=== PATIENT | female | born 1990 | race American Indian/Alaskan Native ===

== ENCOUNTER 2016-09-19 06:36 | Day surgery (SDC) | payer MEDICAID ==
[2016-09-19] MEDS ORDERED: WATER FOR IRRIG STERILE IR ONE (07:46)
[2016-09-19] MEDS ORDERED: DIPRIVAN 10 MG/ML IV ONE ×2 (07:51)
--- NOTE | 2016-09-19 07:54 | Anesthesia Consultation ---
Anesthesia Consult and Med Hx Date of service: 09/19/16 - Airway Anesthetic Teeth Evaluation: Good ROM Head & Neck: Adequate Mental/Hyoid Distance: Inadequate Mallampati Class: Class III Intubation Access Assessment: Possibly Difficult - Pulmonary Exam CTA: Yes - Cardiac Exam Cardiac Exam: RRR - Pre-Operative Health Status ASA Pre-Surgery Classification: ASA3 Proposed Anesthetic Plan: MAC - Pulmonary Hx Smoking: No SOB: Yes (resolved) Hx Sleep Apnea: Yes (does not use CPAP) - Cardiovascular System Hx Hypertension: No - Central Nervous System Hx Neuromuscular Disorder: No Hx Psychiatric Problems: Yes (bipolar, depression) - Gastrointestinal Hx Gastroesophageal Reflux Disease: Yes - Endocrine Hx Insulin Dependent Diabetes: No - Hematic Hx Anemia: No Hx Sickle Cell Disease: No - Other Systems Hx Alcohol Use: No Hx Substance Use: No Hx Cancer: No Hx Obesity: Yes - Additional Comments Anesthesia Medical History Comments: [employer] - WILL NOT ACCEPT BLOOD PRODUCTS
--- NOTE | 2016-09-19 07:54 | Anesthesia Day of Surgery ---
Anesthesia Day of Surgery - Day of Surgery Patient Examined: Yes Patient H&P Reviewed: Yes Patient is NPO: Yes
[2016-09-19] MEDS ORDERED: NACL 0.9% 1000 ML 1,000 ML IV SCH (08:00)
[2016-09-19] MEDS ORDERED: XYLOCAINE MPF 2% ONE (08:00)
--- NOTE | 2016-09-19 08:09 | Operative Report ---
Operative Report Operative Report: OPERATIVE REPORT - EGD DATE: 09/19/2016 SURGERY: Upper endoscopy. SURGEON: Rainer Bernal M.D. SUBSTATION OPERATOR APPRENTICE: Brandyn Puentes MD PRE OP DX: Dyspepsia POST OP DX: Hiatal Hernia TYPE OF ANESTHESIA: MAC. ESTIMATED BLOOD LOSS: None. COMPLICATIONS: None. SPECIMENS REMOVED: None. FINDINGS: 1. Small hiatal hernia. 2. Otherwise, normal esophagus, stomach and first portion of duodenum. INDICATION FOR PROCEDURE: Patient is a 26-year-old female with a long history of morbid obesity. She is planned to have a weight loss procedure and is here for preoperative planning EGD. PROCEDURE DETAILS: After consent was reviewed, patient was taken back to the operating room where patient was placed in the left lateral decubitus position and a bite block was placed in the mouth. After a time-out was called, MAC anesthesia was initiated. I then passed the endoscope into her oropharynx, into her esophagus, visualized the entire esophagus, which was all within normal limits. I then visualized the stomach and the first portion of the duodenum and there were no abnormalities I could clearly visualize. I then retroflexed the scope in the stomach and visualized the hiatus and I could see a small hiatal hernia. I then desufflated the stomach and removed the endoscope. Patient tolerated procedure well and was transferred to recovery room in good and stable condition.
--- NOTE | 2016-09-19 08:10 | Discharge Summary ---
Providers - Providers Date of discharge: 09/19/16 Attending physician: ADRIEL ROBLES Hospitalization Condition: Stable Procedures: EGD Disposition: DISCHARGED TO HOME OR SELFCARE Core Measure Documentation - Palliative Care Palliative Care/ Comfort Measures: Not Applicable - Core Measures Any of the following diagnoses?: none Exam - Physical Exam Narrative exam: unchanged from preop - Constitutional Vitals: Temp Pulse Resp BP Pulse Ox 97.9 F 77 17 111/72 96 09/19/16 07:21 09/19/16 07:21 09/19/16 07:21 09/19/16 07:21 09/19/16 07:21 Plan Activity: no restrictions Diet: low carbohydrate
[2016-09-19 08:38] VITALS: BP 101/62
--- NOTE | 2016-09-19 08:55 | Post Anesthesia Evaluation ---
- Post Anesthesia Evaluation Patient Participated: Yes Airway Patent: Yes Stable Respiratory Function: Yes Nausea/Vomiting: No Temp > 96.8F: Yes Pain Manageable: Yes Adequeate Hydration: Yes Anesthesia Complications: No
== END 2016-09-19 06:37 | disposition home or self-care (01) ==
LOC: GIO 06:36
PROVIDERS: ATTEND Specialist
DX: K44.9 Diaphragmatic hernia without obstruction or gangrene (principal); F31.9 Bipolar disorder, unspecified; K21.9 Gastro-esophageal reflux disease without esophagitis; G47.33 Obstructive sleep apnea (adult) (pediatric); E66.01 Morbid (severe) obesity due to excess calories; Z68.38 Body mass index [BMI] 38.0-38.9, adult; Z82.49 Family history of ischemic heart disease and other diseases of the circulatory system
CPT/HCPCS: 43235; 81025; J2704; J7030

== ENCOUNTER 2016-12-19 05:45 | Inpatient (IN) | payer MEDICAID ==
[~2016-12-19 05:45] MED LIST: LACTATED RINGERS 1,000 ML IV SCH
[2016-12-19] MEDS ORDERED: PEPCID IV NR (06:00)
[2016-12-19] MEDS ORDERED: VERSED IV NR (06:00)
[2016-12-19] MEDS ORDERED: REGLAN IV NR (06:00)
[2016-12-19] MEDS ORDERED: TRANSDERM-SCOP TD NR (06:00)
[2016-12-19] MEDS ORDERED: NACL BACTERIOSTATIC INFILTRATI ONE (06:39)
[2016-12-19] MEDS: NACL 0.9% 1000 ML 1,000 ML IV SCH ×2 (06:45→23:41)
[2016-12-19] MEDS ORDERED: FLAGYL 500 MG/100 ML 500 MG/100 ML BAG IV NR (07:00)
[2016-12-19] MEDS ORDERED: MYLICON PO PRN (07:00)
[2016-12-19] MEDS ORDERED: ANCEF/STERILE WATER 2 GM/20 ML 2 GM/20 ML SYRINGE IV NR (07:00)
[2016-12-19] MEDS ORDERED: ZOFRAN IV PRN ×2 (07:00→11:30)
[2016-12-19] MEDS ORDERED: REGLAN IV PRN (07:00)
[2016-12-19] MEDS ORDERED: TRANSDERM-SCOP TD SCH (07:00)
[2016-12-19] MEDS ORDERED: DILAUDID IV PRN (07:00)
[2016-12-19] MEDS ORDERED: XYLOCAINE 1% 20 mL ONE (07:12)
[2016-12-19] MEDS ORDERED: MARCAINE-EPI/PF 0.5%-1:200,000 INFILTRATI ONE (07:13)
[2016-12-19 07:14] LABS: Basophils % (Auto) 0.9 % (0.0-1.8); Eosinophils % (Auto) 2.7 % (0.0-4.3); Hematocrit 40.7 % (30.3-42.9); Hemoglobin 13.4 gm/dl (10.1-14.3); Mean Corpuscular HGB Conc 33 % (30-34); Mean Corpuscular Hemoglobin 29 pg (28-32); Mean Corpuscular Volume 89 fl (79-97); Platelet Count 283 K/mm3 (140-440); Red Blood Count 4.59 M/mm3 (3.65-5.03); Red Cell Distribution Width 13.4 % (13.2-15.2); White Blood Count 5.5 K/mm3 (4.5-11.0)
--- NOTE | 2016-12-19 07:22 | Anesthesia Consultation ---
Anesthesia Consult and Med Hx Date of service: 12/19/16 - Airway Anesthetic Teeth Evaluation: Good ROM Head & Neck: Adequate Mental/Hyoid Distance: Adequate Mallampati Class: Class II Intubation Access Assessment: Probably Good - Pulmonary Exam CTA: Yes - Cardiac Exam Cardiac Exam: RRR - Pre-Operative Health Status ASA Pre-Surgery Classification: ASA3 Proposed Anesthetic Plan: General - Pulmonary SOB: Yes (resolved) Hx Sleep Apnea: Yes (does not use CPAP) - Cardiovascular System Hx Hypertension: No - Central Nervous System Hx Neuromuscular Disorder: No Hx Psychiatric Problems: Yes (bipolar, depression) - Gastrointestinal Hx Gastroesophageal Reflux Disease: Yes - Endocrine Hx Insulin Dependent Diabetes: No - Hematic Hx Sickle Cell Disease: Yes (Trait only) - Other Systems Hx Cancer: No Hx Obesity: Yes
--- NOTE | 2016-12-19 07:22 | Anesthesia Day of Surgery ---
Anesthesia Day of Surgery - Day of Surgery Patient Examined: Yes Patient H&P Reviewed: Yes Patient is NPO: Yes
[2016-12-19] MEDS ORDERED: DIPRIVAN 10 MG/ML IV ONE (07:29)
[2016-12-19] MEDS ORDERED: SUBLIMAZE ONE (07:30)
[2016-12-19 07:36] LABS: Albumin 4.3 g/dL (3.9-5); Alkaline Phosphatase 78 units/L (35-129); Blood Urea Nitrogen 10 mg/dL (7-17); Calcium 9.1 mg/dL (8.4-10.2); Carbon Dioxide 24 mmol/L (22-30); Chloride 100.4 mmol/L (98-107); Glucose 82 mg/dL (65-100); Sodium 138 mmol/L (137-145); Total Protein 8.4 g/dL (6.3-8.2)
[2016-12-19] MEDS ORDERED: ANCEF/STERILE WATER 2 GM/20 ML 2 GM/20 ML SYRINGE IV ONE (07:37)
[2016-12-19] MEDS ORDERED: LOVENOX SUB-Q ONE (07:37)
[2016-12-19 07:45] LABS: Alanine Aminotransferase 18 units/L (7-56); Anion Gap 18 mmol/L; Potassium 4.5 mmol/L (3.6-5.0)
[2016-12-19 08:00] LABS: Bilirubin,Urine NEG (Negative); Blood,Urine NEG (Negative); Ketones,Urine NEG (Negative); Leukocyte Esterase,Urine NEG (Negative); Nitrite,Urine NEG (Negative); Protein,Urine <15 mg/dL mg/dL (Negative); RBC,Urine < 1.0 /HPF (0.0-6.0); Urobilinogen,Urine < 2.0 mg/dL (<2.0); WBC,Urine < 1.0 /HPF (0.0-6.0)
[2016-12-19] MEDS ORDERED: LOVENOX SUB-Q NR (08:00)
--- NOTE | 2016-12-19 08:26 | Admit Criteria Form ---
Admission Criteria Documentation: AMBULATORY SURGERY EXCEPTION CRITERIA Ambulatory Surgery Exception Criteria ( Place 'X' for any and all applicable criteria): Surgery or procedure performed on ambulatory basis may require inpatient stay for[A] ANY ONE of the following(1)(2)(3)(4)(5)(6)(7)(8)(9): [X] I. A preoperative situation, condition, or finding that warrants inpatient stay as indicated by ANY ONE of the following: [] a) Inpatient care needed because of severity of a disease or condition rather than the surgery (eg, severe cardiac or respiratory disease, severe infection) (15) (16 ) (17) (18) [] b) Emergent procedure (eg, angioplasty for acute ischemia)(19) [] c) Complex surgical approach or situation as indicated by ANY ONE of the following(3): [] i) Open approach needed instead of usual endoscopic, transcatheter, or other less invasive procedure [] ii) Difficult approach because of previous operation [] iii) Airway monitoring required after open neck procedures(20)(21) [] iv) Large mass requiring unusually extensive dissection [] v) Additional complicating feature requiring inpatient care (eg, drain management)(22(23): [X] d) Major surgery in a pt with high anesthetic risk as indicated by ANY ONE of the following (2)(3)(5)(7)(8): [X] i) ASA risk class III or higher (severe systemic disease impairing function) [D] [] ii) Advanced age (eg, older than 85 years)(14)(24) [] iii) Symptomatic heart failure(25) [] iv) Symptomatic asthma or COPD(8)(21) [] v) Morbid obesity with hemodynamic or respiratory problems(20)( 21)(26)(27) [] vi) Obstructive sleep apnea(20)(21) [] vii) Former premature infants who are younger than 60 weeks [] viii) High risk for severe postoperative abnormalities (eg, severe postoperative hypocalcemia after parathyroidectomy for severe hyperparathyroidism)(27)( 28) [] ix) Unstable angina(25) [] e) Drug-related risk requiring inpatient stay as indicated by ANY ONE of the following(5)(10)(14)(32)(33) [] i) Procedure requires discontinuing drugs or other therapy (eg , antiarrhythmic medication, antiseizure medication), which necessitates inpatient observation or treatment.(18)(31) [] ii) Major surgery and high risk drug use as indicated by ANY ONE of the following: [] 1) Active abuse of cocaine or similar drug [] 2) Monoamine oxidase inhibitor use [] 3) Other drug identified as posing risk [] f) Inadequate outpatient care situation as indicated by ANY ONE of the following(5)(10)(14)(32)(33) [] i) Patient lives remote from medical facility and procedure has urgent complication potential, and temporary nearby residence cannot be arranged [] ii) Patient will have postprocedure incapacitation and inadequate assistance at home, or alternative level of care cannot be arranged. [] iii) Patient will have long general anesthesia or procedure side effect resolution time, and competent person to stay with patient on first postoperative night at home or alternative level of care cannot be arranged. []iv) Other inadequate outpatient situation that cannot be handled by other means [] II. A perioperative event, condition, or finding that warrants inpatient stay as indicated by ANY ONE of the following (1)(2)(3): [] a) Inadequate physiologic recovery: cardiovascular, respiratory, or hemodynamic status not normal or near preoperative baseline(18) [] b) Hemodynamic instability [] c) Patient not alert with near normal or baseline mental status [] d) Temperature not normal or as expected and not appropriate for outpatient treatment of condition [] e) Ambulatory or appropriate activity level status not yet achieved post procedure [E](34)(35)(36) [] f) Operative site not appropriate (eg, unexpected or excessive drainage or bleeding) [] g) Postoperative effects not resolved or adequately managed (eg, significant pain or vomiting not appropriate for outpatient or next level of care)(10)(12) [] h) Complicating features requiring inpatient care as indicated by ANY ONE of the following(37): [] i) Severe complications of procedure (eg, bowel injury, airway compromise, vascular injury,severe hemorrhage) [] ii) Extensive (eg, dissection far beyond usual scope of procedure ) or prolonged (eg, 120 minutes beyond usual) surgery needed requiring inpatient postoperative care [] iii) Conversion to an open or complex procedure that requires inpatient care (eg, open vs laparoscopic cholecystectomy, abdominal vs vaginal hysterectomy)(38) [] iv) Comorbid condition or test result identified during or post procedure that requires inpatient care (7) [] v) Malignant hyperthermia(30) [] vi) Other complicating feature requiring inpatient care(22)(23) Inpatient stay may be needed until ALL of the following are present (1)(2)(3)(4) (5)(6)(10)(14)(33)(40): []a) Physiologic recovery: cardiovascular, respiratory, and hemodynamic status normal or near preoperative baseline []b) Hemodynamic stability []c) Patient alert, with near normal or baseline mental status []d) Temperature appropriate: patient afebrile or temperature appropriate for outpt treatment of condition []e) Activity level appropriate: ambulatory or appropriate activity level post procedure []f) Operative site appropriate as indicated by ALL of the following: []i) Site dry or with expected drainage []ii) Any blood noted is as expected for procedure. []g) Postoperative effects resolved or managed as indicated by ALL of the following: []i) Pain management appropriate for outpatient (or next level of) care(10) []ii) Minimal nausea and vomiting: if present, successfully treated with oral medication(12) []iii) Headache, dizziness, or drowsiness (if present) are mild. []h) Voiding status acceptable as indicated by ANY ONE of the following: []i) Voiding spontaneously []ii) No voiding but instructions given for follow-up in 6 to 8 hours []iii) Urinary catheter in place, and instructions given for follow-up []i) Complicating features requiring inpatient care manageable at a lower level of care(37) []j) Comorbid conditions manageable at a lower level of care(37) The original [employer] content created by [employer] has been revised. The portions of the content which have been revised are identified through the use of italic text or in bold, and [facility] [employer] has neither reviewed nor approved the modified material. All other unmodified content is copyright [employer]. Please see references footnoted in the original [employer] edition 2016 Admission Criteria Met: Yes
[2016-12-19] MEDS ORDERED: XYLOCAINE MPF 2% ONE (09:10)
[2016-12-19] MEDS ORDERED: DECADRON ONE (09:10)
[2016-12-19] MEDS ORDERED: ZEMURON IV ONE (09:10)
[2016-12-19] MEDS ORDERED: MARCAINE-EPI/PF 0.25%-1:200,000 INFILTRATI ONE (09:20)
[2016-12-19] MEDS ORDERED: NACL 0.9% IR ONE (09:20)
[2016-12-19] MEDS ORDERED: XYLOCAINE 1% 20 mL INFILTRATI ONE (09:20)
[2016-12-19] MEDS ORDERED: ZOFRAN ONE (10:11)
[2016-12-19] MEDS ORDERED: TORADOL ONE (10:11)
[2016-12-19] MEDS ORDERED: NACL 0.9% 1000 ML 1,000 ML ONE (10:11)
[2016-12-19] MEDS ORDERED: ROBINUL ONE (10:28)
[2016-12-19] MEDS ORDERED: NEOSTIGMINE ONE (10:37)
[2016-12-19] MEDS: DILAUDID IV PRN ×2 (11:00→11:15)
--- NOTE | 2016-12-19 11:37 | Operative Report ---
Operative Report Operative Report: Operative Report DATE OF PROCEDURE: 12/19/2016 PREOPERATIVE DIAGNOSES: Morbid obesity, hiatal hernia POSTOPERATIVE DIAGNOSES: 1.same as pre-op SURGEON: Rainer Bernal MD RISK REDUCTION COUNSELOR: and PROCEDURE: 1. laparoscopic sleeve gastrectomy 2. laparoscopic hiatal hernia repair ANESTHESIA: General. ESTIMATED BLOOD LOSS: <5 mL. COMPLICATIONS: None. SPECIMEN: Partial gastrectomy. FINDINGS: 1. hiatal hernia INDICATION FOR PROCEDURE: Patient is a 26-year-old female with a long history of morbid obesity. She has tried multiple efforts at weight loss without assistant terminal manager success. She is here today for sleeve gastrectomy. PROCEDURE IN DETAIL: After consent was reviewed, patient was taken back to the operating room, where patient was placed supine on the bed with both arms out. The patient's legs were doubly strapped to the bed. Patient had a foot board in place. Patient had a body warmer placed by anesthesia. Patient was then prepped and draped in normal sterile surgical fashion. After a time-out was called, I made a stab incision in Ramirez's point and placed a Veress needle through this incision and insufflated the abdomen to 18 mmHg pressure. I then placed a 5mm trocar on right subcostal area and using optiview technique I enter the abdomen. I then placed a 45-degree scope through this port and inspected the abdomen. There was no injury on entry of the abdomen. I then placed two 5-mm ports in the left upper quadrant, one along the anterior axillary line and one along the mid clavicular line. I then placed a subxiphoid 5mm trocar for the liver retractor and a 15 mm trocar through the umbilicus. I then placed the liver retractor through the subxiphoid port and placed the patient in full reverse Trendelenburg. The right and left crura were skeletonized accentuating a small hiatal hernia. An anterior cruraplasty was performed with a figure-of-8 stitch using surgidac suture to reapproximate the crura. I then identified the pylorus and then counted off 6cm from the pylorus. I then used a LigaSure cutting device to enter into the lesser sac. At that point and then I took down the short gastrics all the way up to the left sebastien. Then I had anesthesia pass down a 40-[place] bougie along the lesser curvature of the stomach. I made sure everything else was out of the abdomen except the bougie. I then created my gastric sleeve using a 60-mm stapler loads. A green load followed by a andersen load and then blue loads. The sleeve looked good without any twisting or torsion. I then had anesthesia to remove the bougie. Hemostasis was obtained along the staple line. I then used Tiseel along the entirety of the staple line and some on the liver. I then removed liver grasper and took it off the field. I then removed the stomach through the 15-mm port. I then closed that fascia with a #1 PDS in a [id number] fashion using a David-Willa. I then desufflated the abdomen and then removed all port sites. I then closed the incisions with 4-0 Monocryl in subcuticular fashion. I then dressed the wounds with telffa gauze and tegaderm. Patient tolerated the procedure well and was transferred to recovery room in good and stable condition.
--- NOTE | 2016-12-19 11:38 | Post Anesthesia Evaluation ---
- Post Anesthesia Evaluation Patient Participated: Yes Airway Patent: Yes Stable Respiratory Function: Yes Nausea/Vomiting: No Temp > 96.8F: Yes Pain Manageable: Yes Adequeate Hydration: Yes Anesthesia Complications: No Block Receding Appropriately: Not Applicable Patient on Ventilator: No
[2016-12-19] MEDS ORDERED: APRESOLINE IV PRN (11:49)
[2016-12-19] MEDS ORDERED: TORADOL IV SCH (12:00)
[2016-12-19] MEDS: MORPHINE IV PRN ×2 (14:20→22:19)
[2016-12-20] MEDS: MORPHINE IV PRN (07:02)
[2016-12-20 07:48] LABS: Basophils % (Auto) 0.9 % (0.0-1.8); Eosinophils % (Auto) 0.1 % (0.0-4.3); Hematocrit 38.8 % (30.3-42.9); Hemoglobin 12.9 gm/dl (10.1-14.3); Mean Corpuscular HGB Conc 33 % (30-34); Mean Corpuscular Hemoglobin 29 pg (28-32); Mean Corpuscular Volume 87 fl (79-97); Platelet Count 222 K/mm3 (140-440); Red Blood Count 4.44 M/mm3 (3.65-5.03); Red Cell Distribution Width 13.4 % (13.2-15.2); White Blood Count 8.3 K/mm3 (4.5-11.0)
[2016-12-20 07:58] LABS: Anion Gap 19 mmol/L; Blood Urea Nitrogen 10 mg/dL (7-17); Calcium 8.2 mg/dL (8.4-10.2); Carbon Dioxide 18 mmol/L (22-30); Glucose 83 mg/dL (65-100); Potassium 4.1 mmol/L (3.6-5.0); Sodium 139 mmol/L (137-145)
--- NOTE | 2016-12-20 08:58 | Discharge Summary ---
Providers - Providers Date of Admission: 12/19/16 05:45 Date of discharge: 12/20/16 Attending physician: ADRIEL ROBLES Primary care physician: MAILE SHARP MD Hospitalization Reason for admission: postop observation Condition: Stable Procedures: sleeve gastrectomy with hiatal hernia repair Disposition: DC-01 TO HOME OR SELFCARE Core Measure Documentation - Palliative Care Palliative Care/ Comfort Measures: Not Applicable - Core Measures Any of the following diagnoses?: none Exam - Physical Exam Narrative exam: VSS NAD Lungs CTA BL Heart RRR Abd soft, ND, appropriate TTP around wounds. Dressings c/d/i Neuro AAOx3 - Constitutional Vitals: Temp Pulse Resp BP Pulse Ox 98.7 F 84 20 126/82 100 12/20/16 05:18 12/20/16 05:18 12/20/16 05:18 12/20/16 05:18 12/20/16 05:18 Plan Activity: advance as tolerated Diet: other (bariatric stage 1) Wound: keep clean and dry Special Instructions: no heavy lifting Follow up with: PRIMARY CAREMD [Primary Care Provider] - 7 Days
[2016-12-20 09:00] VITALS: BP 106/72
--- NOTE | 2016-12-20 09:32 | Progress Note ---
Subjective Date of service: 12/20/16 Principal diagnosis: Morbid obesity Interval history: Patient seen post-op day one, ambulating, satisfied with anesthesia. Objective - Constitutional Vitals: Vital Signs - 12hr 12/20/16 12/20/16 12/20/16 00:26 05:18 08:00 Temperature 98.7 F 98.7 F 98.5 F Pulse Rate [ 61 84 85 From Monitor] Respiratory 18 20 18 Rate Blood Pressure 116/78 126/82 106/72 [Left Arm] O2 Sat by Pulse 97 100 98 Oximetry - Labs CBC & Chem 7: 12/20/16 06:43 12/20/16 06:43 Labs: Abnormal lab results 12/20/16 12/20/16 Range/Units 06:43 06:43 [place]pton % (Auto) 10.7 H (0.0-7.3) % Upton # 0.9 H (0.0-0.8) K/mm3 Seg Neutrophils % 70.4 H (40.0-70.0) % Carbon Dioxide 18 L (22-30) mmol/L Calcium 8.2 L (8.4-10.2) mg/dL
[2016-12-20] MEDS ORDERED: LOVENOX SUB-Q SCH (10:00)
== END 2016-12-20 12:52 | disposition home or self-care (01) | DRG 621 ==
LOC: 3A 05:45 → 2B-SURG 11:03
PROVIDERS: ADMIT Specialist; ATTEND Specialist
PROC: 0DB64Z3 Excision of Stomach, Percutaneous Endoscopic Approach, Vertical (ICD-10-PCS; principal; 2016-12-19)
PROC: 0BQS4ZZ (ICD-10-PCS; 2016-12-19)
PROC: 0BQR4ZZ (ICD-10-PCS; 2016-12-19)
DX: E66.01 Morbid (severe) obesity due to excess calories (principal); K44.9 Diaphragmatic hernia without obstruction or gangrene; K30 Functional dyspepsia; F32.9 Major depressive disorder, single episode, unspecified; Z68.38 Body mass index [BMI] 38.0-38.9, adult; Z91.013 Allergy to seafood
CPT/HCPCS: 36415; 80048; 80053; 81001; 81025; 85025; 88307; 93005; 93010; C9250; J0690; J1100; J1170; J1650; J1885; J2250; J2270; J2405; J2704; J2710; J2765; J3010; J7030